=== PATIENT | male | born 2000 | race Caucasian/White ===

== ENCOUNTER 2022-11-21 11:13 | Inpatient (IN) | payer OTHER ==
[~2022-11-21] VITALS: Ht 182.9 cm; Wt 77.3 kg
[2022-11-21] MEDS: NICOTINE 21MG/24HR 1 EA TRANSDERMAL TD SCH (09:00)
[2022-11-21 12:19] LABS: HEMATOCRIT 49.8 % (42.0-52.0); HEMOGLOBIN 16.4 g/dl (13.5-17.5); MEAN CORPUSCULAR HEMOGLOBIN 27.7 pg (27.0-33.0); MEAN CORPUSCULAR HGB CONC 32.9 g/dl (32.0-36.5); PLATELET COUNT, AUTOMATED 260 10^3/uL (150-450); RED BLOOD COUNT 5.93 10^6/uL (4.30-6.10); WHITE BLOOD COUNT 6.8 10^3/uL (4.0-10.0)
[2022-11-21 12:36] LABS: ETHYL ALCOHOL (ETHANOL) < 0.003 % (0.000-0.010)
[2022-11-21 12:37] LABS: ACETAMINOPHEN LEVEL < 2.0 UG/ML (10.0-20.0); SALICYLATE LEVEL < 3.0 MG/DL (<30)
[2022-11-21 12:38] LABS: ALBUMIN 4.1 G/DL (3.2-5.2); ALKALINE PHOSPHATASE 87 U/L (46-116); ALT/SGPT 26 U/L (7.0-40); AST/SGOT 22 U/L (<34); BILIRUBIN,DIRECT 0.3 MG/DL (<0.4); BILIRUBIN,TOTAL 0.8 MG/DL (0.3-1.2); BLOOD UREA NITROGEN 12 MG/DL (9-23); CARBON DIOXIDE LEVEL 24 MMOL/L (20-31); CHLORIDE LEVEL 106 MMOL/L (98-107); CREATININE FOR GFR 0.95 MG/DL (0.70-1.30); GLOMERULAR FILTRATION RATE > 60.0 (>60); GLUCOSE, FASTING 90 MG/DL (60-100); SODIUM LEVEL 140 MMOL/L (136-145)
[2022-11-21 12:40] LABS: THYROID STIMULATING HORMONE 1.054 uIU/ML (0.55-4.78)
[2022-11-21 12:59] LABS: AMPHETAMINES LEVEL URINE NEGATIVE (NEGATIVE); BARBITURATES URINE NEGATIVE (NEGATIVE); BENZODIAZEPINES URINE NEGATIVE (NEGATIVE); COCAINE METABOLITE URINE NEGATIVE (NEGATIVE); METHADONE URINE NEGATIVE (NEGATIVE)
[2022-11-21 13:00] LABS: CANNABINOIDS URINE NEGATIVE (NEGATIVE); OPIATES URINE NEGATIVE (NEGATIVE); PHENCYCLIDINE URINE NEGATIVE (NEGATIVE)
[2022-11-21] MEDS ORDERED: IBUPROFEN 400MG TAB PO PRN (14:50)
[2022-11-21] MEDS ORDERED: traZODone 50 MG TAB PO PRN (14:50)
[2022-11-21] MEDS ORDERED: MAALOX 30 ML SUSP *UDC PO PRN (14:50)
[2022-11-21] MEDS ORDERED: diphenhydrAMINE 25MG CAP PO PRN (14:50)
[2022-11-21] MEDS ORDERED: MOM 30ML SUSPENSION UDC PO PRN (14:50)
[2022-11-21] MEDS ORDERED: HOME MED LIST COMPLETE! XX SCH (16:45)
[2022-11-21 18:28] VITALS: BP 128/37
[2022-11-22 06:39] VITALS: BP 131/58
[2022-11-22] MEDS: NICOTINE 21MG/24HR 1 EA TRANSDERMAL TD SCH (08:46)
[2022-11-22] MEDS: SERTRALINE HCL 50 MG TAB PO SCH (11:30)
[2022-11-22 18:19] VITALS: BP 154/68
[2022-11-23 06:45] VITALS: BP 126/56
[2022-11-23] MEDS: SERTRALINE HCL 50 MG TAB PO SCH (08:47)
[2022-11-23] MEDS: NICOTINE 21MG/24HR 1 EA TRANSDERMAL TD SCH (08:48)
[2022-11-23 17:59] VITALS: BP 161/71
[2022-11-24 06:52] VITALS: BP 127/60
[2022-11-24] MEDS: SERTRALINE HCL 50 MG TAB PO SCH (08:52)
[2022-11-24 18:53] VITALS: BP 130/58
[2022-11-25 05:43] VITALS: BP 110/66
[2022-11-25] MEDS: SERTRALINE HCL 50 MG TAB PO SCH (09:40)
[2022-11-25 16:24] VITALS: BP 128/67
[2022-11-26 06:40] VITALS: BP 114/63
[2022-11-26] MEDS: SERTRALINE HCL 50 MG TAB PO SCH (09:04)
[2022-11-26 16:35] VITALS: BP 135/60
[2022-11-27 07:03] VITALS: BP 117/61
[2022-11-27] MEDS: SERTRALINE HCL 50 MG TAB PO SCH (08:51)
[2022-11-27] MEDS ORDERED: SERT50TA29 PO (10:16)
== END 2022-11-27 12:21 | disposition home or self-care (01) | DRG 881 ==
LOC: EDBD 11:13 → M ED 11:13 → M ED INP 14:48 → M PSY 18:23
PROVIDERS: ADMIT Student in an Organized Health Care Education/Training Program; ATTEND Psychiatry & Neurology Psychiatry
DX: F32.A Depression, unspecified (principal); R45.851 Suicidal ideations; F43.21 Adjustment disorder with depressed mood; F10.10 Alcohol abuse, uncomplicated; F07.81 Postconcussional syndrome

== ENCOUNTER 2023-10-10 10:35 | Day surgery (SDC) | payer OTHER ==
[~2023-10-10] VITALS: Ht 182.9 cm; Wt 78.5 kg
[~2023-10-10 10:35] MED LIST: SERT50TA29 PO; ZOLO25TA PO; ZOLO50TA PO
[2023-10-10] MEDS ORDERED: LIDOCAINE 1% SDV 5ML VIAL SC PRN (11:00)
[2023-10-10] MEDS ORDERED: LR 1,000 ML IV SCH ×2 (11:00→16:45)
[2023-10-10] MEDS ORDERED: fentaNYL 250 MCG/5 ML INJECTION As Ordered ONE (11:47)
[2023-10-10] MEDS ORDERED: propofoL 200 MG/20 ML VIAL As Ordered ONE (11:47)
[2023-10-10] MEDS ORDERED: MIDAZOLAM INJ 2MG/2ML VIAL As Ordered ONE (11:47)
[2023-10-10] MEDS ORDERED: LIDOCAINE 2% 100MG/5ML SDV (FOR ANES.) As Ordered ONE (11:47)
[2023-10-10] MEDS ORDERED: ROCURONIUM BROMIDE 50MG/5ML VIAL As Ordered ONE ×2 (11:47→14:37)
[2023-10-10] MEDS ORDERED: ACETAMINOPHEN 1000MG 100ML IV BAG As Ordered ONE (13:16)
[2023-10-10] MEDS ORDERED: ONDANSETRON 4MG 2ML VIAL As Ordered ONE (14:28)
[2023-10-10] MEDS ORDERED: LIDOCAINE W/EPINEPHRINE 1% 20ML VIAL As Ordered ONE (14:31)
[2023-10-10] MEDS ORDERED: ePHEDrine SULFATE 25 MG/5 ML(5MG/ML) SYRINGE As Ordered ONE (14:38)
[2023-10-10] MEDS ORDERED: PHENYLephrine 500MCG 5ML (100MCG/ML) SYRINGE As Ordered ONE (14:38)
[2023-10-10] MEDS ORDERED: POLYSPORIN OPHTH OINT 3.5 GM As Ordered ONE (15:01)
[2023-10-10] MEDS ORDERED: POLYSPORIN TOPICAL OINTMENT 15GM As Ordered ONE (15:02)
[2023-10-10] MEDS ORDERED: ceFAZolin 2 GM/D5W 50 ML IV BAG As Ordered ONE (15:32)
[2023-10-10] MEDS ORDERED: metroNIDAZOLE/NACL 500MG(5MG/ML) 100ML BAG As Ordered ONE (15:40)
[2023-10-10] MEDS ORDERED: SUGAMMADEX SODIUM 500 MG/5 ML VIAL (BRIDION) As Ordered ONE (16:19)
[2023-10-10] MEDS ORDERED: fentaNYL 100 MCG/2 ML INJECTION IV PRN (16:45)
[2023-10-10] MEDS ORDERED: ONDANSETRON 4MG 2ML VIAL IV PRN (16:45)
[2023-10-10] MEDS ORDERED: oxyCODONE 5MG TAB PO PRN (16:45)
[2023-10-10] MEDS ORDERED: HYDROMORPHONE HCL 0.5 MG/ 0.5 ML SYRINGE IV PRN (16:45)
[2023-10-10 17:20] VITALS: BP 134/60; TEMP 98.7; O2SAT 96
== END 2023-10-10 17:38 | disposition home or self-care (01) ==
LOC: M SDC 10:35
PROVIDERS: ATTEND Otolaryngology
DX: D21.0 Benign neoplasm of connective and other soft tissue of head, face and neck (principal); F32.A Depression, unspecified; F41.9 Anxiety disorder, unspecified; Z79.899 Other long term (current) drug therapy; Z87.891 Personal history of nicotine dependence
CPT/HCPCS: 21556; 88305; J0131; J0690; J1100; J1836; J2250; J2371; J2405; J3010

== ENCOUNTER → 2024-05-28 | Outpatient (REF) | LOC: M PLAIMG 11:43 | PROVIDERS: ATTEND Internal Medicine | DX: M25.50 Pain in unspecified joint (principal) ==